=== PATIENT | female | born 1980 | race Caucasian/White ===

== ENCOUNTER 2020-06-22 18:02 | Emergency (ER) | payer MEDICAID ==
[~2020-06-22] VITALS: Ht 162.6 cm; Wt 61.2 kg
[2020-06-22 18:02] VITALS: BP_SYST 125
--- NOTE | 2020-06-22 18:02 | NUR ---
Patient to ER bed 5 to gown for evaluation. Side rails up. Report given to SRAVANTHI Gonzáles.
--- NOTE | 2020-06-22 18:02 | NUR ---
40 y/o female bib [facility] ambulance w/ c/o generalized body pain and h/a for which patient had stated that her "pain is so severe that she wants to " but denies any suicidal or homocidal ideations. Introduced self to patient, positioned for comfort and safety w/ bed to low position sr up. Continue to monitor.
--- NOTE | 2020-06-22 18:38 | NUR ---
ROMEO Boston at bedside examining patient.
[2020-06-22] MEDS ORDERED: OLANZapine 5 MG TAB.RAPDIS PO ONE (18:45)
[2020-06-22] MEDS ORDERED: NACL 0.9% 1,000 ML IV ONE (18:45)
--- NOTE | 2020-06-22 19:06 | NUR ---
received report from SRAVANTHI Gonzáles for continuation of care.
--- NOTE | 2020-06-22 19:11 | NUR ---
patient states she has "the worst headache of her life", pain rated 10 out of 10. patient denies suicidal ideations.
--- NOTE | 2020-06-22 19:15 | NUR ---
patient refusing IV and fluids. aware.
[2020-06-22 19:29] LABS: BASOPHILS # (AUTO) 0.1 K/uL (0.0-0.2); BASOPHILS % (AUTO) 0.7 % (0.0-2.0); EOSINOPHILS # (AUTO) 0.1 K/uL (0.0-0.4); EOSINOPHILS % (AUTO) 0.6 % (0.0-4.0); HEMATOCRIT 40.6 % (36-48); HEMOGLOBIN 14.3 g/dL (12.0-16.0); LYMPHOCYTES # (AUTO) 3.4 K/uL (1.0-5.5); MEAN CORPUSCULAR HEMOGLOBIN 34 pg (27-31); MEAN CORPUSCULAR HGB CONC 35 % (32-36); MEAN CORPUSCULAR VOLUME 95 fL (79.0-98.0); MONOCYTES # (AUTO) 0.6 K/uL (0.0-1.0); NEUTROPHILS # (AUTO) 6.7 K/uL (1.8-7.7); NEUTROPHILS % (AUTO) 61.7 % (40.0-70.0); PLATELET COUNT (AUTO) 251 K/uL (130-430); RED BLOOD CELL COUNT(AUTO) 4.25 MIL/uL (4.2-6.2); RED CELL DISTRIBUTION WIDTH 13.1 % (9.0-15.0); WHITE BLOOD COUNT (AUTO) 10.9 K/uL (4.8-10.8)
--- NOTE | 2020-06-22 19:30 | NUR ---
moved to bed 3
[2020-06-22 19:38] LABS: ANION GAP 12 (5-15); CALCIUM 9.3 mg/dL (8.4-11.0); CHLORIDE 103 mmol/L (98-107); CREATININE 0.48 mg/dL (0.55-1.30); GLUCOSE 85 mg/dL (70-99); POTASSIUM 3.4 mmol/L (3.5-5.1); SODIUM SERUM 136 mmol/L (136-145); UREA NITROGEN, BLOOD 8 mg/dL (8-21)
--- NOTE | 2020-06-22 19:38 | NUR ---
patient refusing all medication and interventions ordered by MD. pt began threatening myself and another nurse stating "if you don't give me the pain medications i want them i will make your life a living hell, i will end you, i will put you under, and by under you know what i mean". pt began speaking in a different accent and continuing to make threats.
--- NOTE | 2020-06-22 19:42 | NUR ---
patient eloped. NO IV access. pt ambulated with steady gait. MD aware. pt denies suidical ideations.
[2020-06-22 19:51] LABS: ALANINE AMINOTRANSFERASE 45 U/L (12-78); ALBUMIN 4.1 g/dL (3.4-4.8); ASPARTATE AMINOTRANSFERASE 26 U/L (10-37); TOTAL BILIRUBIN 0.5 mg/dL (0.0-1.0)
[2020-06-22 19:51] LABS: BARBITURATE, URINE NEGATIVE (NEG <=200)
[2020-06-22 19:52] LABS: BENZODIAZEPINE, URINE NEGATIVE (NEG <=150); CANNABINOID, URINE NEGATIVE (NEG <=50); COCAINE, URINE NEGATIVE (NEG <=150); METHAMPHETAMINES SCREEN,URINE POSITIVE (NEG <=500); OPIATE, URINE NEGATIVE (NEG <=100); PHENCYCLIDINE SCREEN,URINE NEGATIVE (NEG <=25); UR TRICYCLIC ANTIDEPRESSANTS NEGATIVE (NEG <=300); URINE AMPHETAMINE POSITIVE (NEG <=500); URINE METHADONE NEGATIVE (NEG <=200); URINE OXYCODONE SCREEN NEGATIVE (NEG <=100); URINE PROPOXYPHENE SCREEN NEGATIVE (NEG <=300)
[2020-06-22 19:54] LABS: GFR AFRICAN AMERICAN 183 mL/min (>90)
[2020-06-22 19:55] LABS: ACETAMINOPHEN < 1 ug/mL (1-30); ALCOHOL, BLOOD < 3 mg/dL (<10)
== END 2020-06-22 19:42 | disposition left against medical advice (07) ==
LOC: SED 18:02
DX: R51.9 Headache, unspecified (principal); F17.200 Nicotine dependence, unspecified, uncomplicated
CPT/HCPCS: 36415; 80053; 80307; 81025; 85025; 99283; G0480; G0481; G0482

== ENCOUNTER 2020-06-25 21:40 | Emergency (ER) | payer MEDICAID, SELFPAY ==
[~2020-06-25] VITALS: Ht 162.6 cm; Wt 62.6 kg
[2020-06-25 21:45] VITALS: BP_SYST 139
--- NOTE | 2020-06-25 21:51 | NUR ---
Patient to ER bed 5 to gown for evaluation. Side rails up. Report given to Tomasa FISHMAN.
[2020-06-25] MEDS ORDERED: LORazepam 2 MG/ML VIAL IM ONE (22:00)
--- NOTE | 2020-06-25 22:02 | NUR ---
Pt bib ambulance for drug overdose. Pt reports taking unknown amount of trazadone and zyprexa x 30 mins ago. Pt requesting to go to psych facility. Pt able to speak full sentence. Vitals are stable and within normal limits. Poison control will be called to for recommendations. Pt has hx of depression. Denies any allergies.
--- NOTE | 2020-06-25 22:05 | NUR ---
Pt refused to change to gown, allowed security to wand patient and go through pockets. Pt verbally abusive and giving threatening remarks.
[2020-06-25] MEDS ORDERED: LORazepam 2 MG/ML VIAL ONE (22:16)
--- NOTE | 2020-06-25 22:30 | NUR ---
Called Poison Control at [phone] and spoke with Gregoria. Per recommendations: Basic work up including ekg, cmp, cbc, AND UDS. 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 Dr. Thayer notified. Will continue to monitor patient.
[2020-06-25 22:48] LABS: BASOPHILS # (AUTO) 0.1 K/uL (0.0-0.2); BASOPHILS % (AUTO) 1.1 % (0.0-2.0); EOSINOPHILS # (AUTO) 0.1 K/uL (0.0-0.4); HEMATOCRIT 39.8 % (36-48); LYMPHOCYTES # (AUTO) 3.7 K/uL (1.0-5.5); MEAN CORPUSCULAR HEMOGLOBIN 34 pg (27-31); MEAN CORPUSCULAR HGB CONC 35 % (32-36); MEAN CORPUSCULAR VOLUME 95 fL (79.0-98.0); MONOCYTES # (AUTO) 0.5 K/uL (0.0-1.0); MONOCYTES % (AUTO) 5.5 % (1.7-9.3); NEUTROPHILS % (AUTO) 53.4 % (40.0-70.0); PLATELET COUNT (AUTO) 280 K/uL (130-430); RED BLOOD CELL COUNT(AUTO) 4.17 MIL/uL (4.2-6.2); RED CELL DISTRIBUTION WIDTH 12.7 % (9.0-15.0); WHITE BLOOD COUNT (AUTO) 9.4 K/uL (4.8-10.8)
--- NOTE | 2020-06-25 23:00 | NUR ---
Gogo sanchez in ED - 06/25/20 at 2301 by SUDEEP ROMEO Thayer at bedside examining patient.
[2020-06-25 23:08] LABS: ANION GAP 10 (5-15); CALCIUM 8.8 mg/dL (8.4-11.0); CHLORIDE 103 mmol/L (98-107); CREATININE 0.59 mg/dL (0.55-1.30); GLUCOSE 125 mg/dL (70-99); SODIUM SERUM 138 mmol/L (136-145); UREA NITROGEN, BLOOD 7 mg/dL (8-21)
[2020-06-25 23:10] LABS: GFR AFRICAN AMERICAN 144 mL/min (>90)
[2020-06-25 23:21] LABS: TRIGLYCERIDES 272 mg/dL (30-150)
[2020-06-25 23:22] LABS: ALANINE AMINOTRANSFERASE 40 U/L (12-78); ALBUMIN 3.8 g/dL (3.4-4.8); ASPARTATE AMINOTRANSFERASE 19 U/L (10-37); CHOLESTEROL 135 mg/dL (<200); HDL CHOLESTEROL 21 mg/dL (>55); LDL CHOLESTEROL 89 mg/dL (<100); TOTAL BILIRUBIN 0.2 mg/dL (0.0-1.0)
[2020-06-25 23:24] LABS: ACETAMINOPHEN < 1 ug/mL (1-30); ALCOHOL, BLOOD < 3 mg/dL (<10)
[2020-06-26 00:01] LABS: BARBITURATE, URINE NEGATIVE (NEG <=200); BENZODIAZEPINE, URINE NEGATIVE (NEG <=150); CANNABINOID, URINE NEGATIVE (NEG <=50); COCAINE, URINE NEGATIVE (NEG <=150); METHAMPHETAMINES SCREEN,URINE NEGATIVE (NEG <=500); OPIATE, URINE NEGATIVE (NEG <=100); PHENCYCLIDINE SCREEN,URINE NEGATIVE (NEG <=25); UR TRICYCLIC ANTIDEPRESSANTS NEGATIVE (NEG <=300); URINE AMPHETAMINE NEGATIVE (NEG <=500); URINE METHADONE NEGATIVE (NEG <=200); URINE OXYCODONE SCREEN NEGATIVE (NEG <=100); URINE PROPOXYPHENE SCREEN NEGATIVE (NEG <=300)
[2020-06-26 00:05] LABS: CLARITY/URINE SLIGHTLY CLOUDY (CLEAR); COLOR,URINE YELLOW (YELLOW)
[2020-06-26 00:06] LABS: BILIRUBIN,URINE NEGATIVE (NEGATIVE); BLOOD, URINE NEGATIVE (NEGATIVE); GLUCOSE,URINE NEGATIVE (NEGATIVE); KETONES,URINE NEGATIVE (NEGATIVE); LEUKOCYTE ESTERASE ,URINE NEGATIVE (NEGATIVE); NITRITE, URINE NEGATIVE (NEGATIVE); PROTEIN URINE NEGATIVE (NEGATIVE); UROBILINOGEN,URINE 0.2 (0.2-1.0)
--- NOTE | 2020-06-26 00:10 | NUR ---
Pt is resting, no complaints at this time. Pt has symmertric chest rise and fall. Pt did not allow me to take vitals.
[2020-06-26] MEDS ORDERED: POTASSIUM CHLORIDE 20 MEQ TAB.PRT.SR PO ONE (02:45)
--- NOTE | 2020-06-26 03:00 | NUR ---
Pt did not allow vitals to be taken, Pt agitated when aroused from sleep, stating "she will end me". Symmetric chest rise and fall.
--- NOTE | 2020-06-26 06:00 | NUR ---
Pt easily aroused, agitated when woken up from sleep. No complaints at this time.
--- NOTE | 2020-06-26 06:02 | NUR ---
Pt agreed to ANGIE, swab sent to Lab.
--- NOTE | 2020-06-26 07:17 | NUR ---
Report given to Aida FISHMAN for continuaton of care
--- NOTE | 2020-06-26 08:00 | NUR ---
PT SANDRO HER HEAD UP IN BED WHEN DOOR WAS OPENED. ASSESSED FOR PAIN, OR HER NEEDS, PT DID NOT ANSWER. SHE LIED DOWN TO HER SIDE AND SHUT HER EYES. WILL CONTINUE TO MONITOR PT.
--- NOTE | 2020-06-26 09:05 | NUR ---
APPROACHED PT, EXPLAINED THAT THE DOCTOR ORDERED EKG. SHE AGREED BUT WHEN EKG MACHINE IS BEING SET UP, SHE REFUSED AND STATED THAT "THIS IS NOT NECESSARY, I HAVE HAD THIS MANY TIMES IN DIFFERENT CLINICS AND ALL WERE FINE". SHE ONLY ALLOWED HER VITAL SIGNS TO BE TAKEN.
--- NOTE | 2020-06-26 10:08 | NUR ---
PET TEAM HERE TO EVALUATE PT.
--- NOTE | 2020-06-26 11:14 | NUR ---
PHONE CALL RECEIVED FROM BARBARA OF [facility], REPORT GIVEN, PT WILL BE ADMITTED UNDER DR LARIOS.
--- NOTE | 2020-06-26 12:48 | NUR ---
[facility] HERE FOR TRANSPORTING PT TO [place]. PT HAVING HER LUNCH. PT IN GOOD MOOD.
[2020-06-26 14:06] VITALS: BP_SYST 106
== END 2020-06-26 14:06 ==
LOC: SED 21:40
DX: T43.591A Poisoning by other antipsychotics and neuroleptics, accidental (unintentional), initial encounter (principal); R45.851 Suicidal ideations; Z20.828 Contact with and (suspected) exposure to other viral communicable diseases; Y92.89 Other specified places as the place of occurrence of the external cause
CPT/HCPCS: 36415; 80053; 80061; 80307; 81003; 82550; 84443; 85025; 87426; 96372; 99285; G0480; G0481; G0482; J2060

== ENCOUNTER 2020-07-08 05:19 | Emergency (ER) | payer MEDICAID, SELFPAY ==
[~2020-07-08] VITALS: Ht 162.6 cm; Wt 62.6 kg
[2020-07-08 05:19] VITALS: BP_SYST 108
--- NOTE | 2020-07-08 05:29 | NUR ---
Patient to ER bed 5 to gown for evaluation. Side rails up.
--- NOTE | 2020-07-08 05:30 | NUR ---
Patient BIB by BLS/EMT. C/O medical clearance x today. Per reported, patient need refill psy medications. Hx Depression, Anxiety disorder, suicidal (per patient reported) A/O,X4, denies pain, Patient states " I need Ativan now, I felt anxious."
--- NOTE | 2020-07-08 05:37 | NUR ---
ER at bedside examining patient.
[2020-07-08] MEDS ORDERED: LORazepam 1 MG TABLET PO ONE ×2 (06:00→07:45)
[2020-07-08 06:09] LABS: BILIRUBIN,URINE 1+ (NEGATIVE); BLOOD, URINE NEGATIVE (NEGATIVE); CLARITY/URINE CLEAR (CLEAR); COLOR,URINE YELLOW (YELLOW); GLUCOSE,URINE NEGATIVE (NEGATIVE); KETONES,URINE NEGATIVE (NEGATIVE); LEUKOCYTE ESTERASE ,URINE NEGATIVE (NEGATIVE); NITRITE, URINE NEGATIVE (NEGATIVE); PROTEIN URINE NEGATIVE (NEGATIVE); UROBILINOGEN,URINE 0.2 (0.2-1.0)
[2020-07-08] MEDS ORDERED: LORazepam 1 MG TABLET ONE (06:10)
--- NOTE | 2020-07-08 06:12 | NUR ---
Request patient change her clothes , patient states " I do not change period, no discuss, I want to go to psy unit."
[2020-07-08 06:18] LABS: BARBITURATE, URINE NEGATIVE (NEG <=200); BENZODIAZEPINE, URINE NEGATIVE (NEG <=150); CANNABINOID, URINE NEGATIVE (NEG <=50); COCAINE, URINE NEGATIVE (NEG <=150); METHAMPHETAMINES SCREEN,URINE POSITIVE (NEG <=500); OPIATE, URINE NEGATIVE (NEG <=100); PHENCYCLIDINE SCREEN,URINE NEGATIVE (NEG <=25); UR TRICYCLIC ANTIDEPRESSANTS NEGATIVE (NEG <=300); URINE AMPHETAMINE NEGATIVE (NEG <=500); URINE METHADONE NEGATIVE (NEG <=200); URINE OXYCODONE SCREEN NEGATIVE (NEG <=100); URINE PROPOXYPHENE SCREEN NEGATIVE (NEG <=300)
--- NOTE | 2020-07-08 07:35 | NUR ---
ER at bedside examining patient.
[2020-07-08 08:21] LABS: BASOPHILS # (AUTO) 0.1 K/uL (0.0-0.2); BASOPHILS % (AUTO) 0.7 % (0.0-2.0); EOSINOPHILS # (AUTO) 0.1 K/uL (0.0-0.4); EOSINOPHILS % (AUTO) 1.7 % (0.0-4.0); HEMATOCRIT 41.9 % (36-48); HEMOGLOBIN 14.2 g/dL (12.0-16.0); LYMPHOCYTES # (AUTO) 2.6 K/uL (1.0-5.5); LYMPHOCYTES % (AUTO) 31.3 % (20.5-51.5); MEAN CORPUSCULAR HEMOGLOBIN 33 pg (27-31); MEAN CORPUSCULAR HGB CONC 34 % (32-36); MEAN CORPUSCULAR VOLUME 98 fL (79.0-98.0); MONOCYTES # (AUTO) 0.6 K/uL (0.0-1.0); MONOCYTES % (AUTO) 7.3 % (1.7-9.3); NEUTROPHILS # (AUTO) 4.8 K/uL (1.8-7.7); PLATELET COUNT (AUTO) 240 K/uL (130-430); RED BLOOD CELL COUNT(AUTO) 4.27 MIL/uL (4.2-6.2); RED CELL DISTRIBUTION WIDTH 12.9 % (9.0-15.0); WHITE BLOOD COUNT (AUTO) 8.2 K/uL (4.8-10.8)
[2020-07-08 08:32] LABS: ANION GAP 10 (5-15); CALCIUM 9.4 mg/dL (8.4-11.0); CHLORIDE 102 mmol/L (98-107); CREATININE 0.58 mg/dL (0.55-1.30); GLUCOSE 102 mg/dL (70-99); POTASSIUM 3.6 mmol/L (3.5-5.1); SODIUM SERUM 138 mmol/L (136-145); UREA NITROGEN, BLOOD 14 mg/dL (8-21)
[2020-07-08 08:35] LABS: GFR AFRICAN AMERICAN 147 mL/min (>90)
[2020-07-08 08:37] LABS: ALANINE AMINOTRANSFERASE 163 U/L (12-78); ASPARTATE AMINOTRANSFERASE 70 U/L (10-37); TOTAL BILIRUBIN 0.4 mg/dL (0.0-1.0)
[2020-07-08 08:38] LABS: ALCOHOL, BLOOD < 3 mg/dL (<10)
[2020-07-08 08:39] LABS: ACETAMINOPHEN < 1 ug/mL (1-30)
--- NOTE | 2020-07-08 08:48 | NUR ---
PT GIVEN BREAKFAST AND ATIVAN PO. PT IS RESTING WELL. PT STATED SHE DOES NOT WANT TO GO OUT IN THE COLD AND WANTS TO GO TO [facility]IATRIC [facility].
[2020-07-08 08:54] LABS: CHOLESTEROL 252 mg/dL (<200); HDL CHOLESTEROL 30 mg/dL (>55); LDL CHOLESTEROL 182 mg/dL (<100); TRIGLYCERIDES 293 mg/dL (30-150)
--- NOTE | 2020-07-08 09:40 | NUR ---
Dr. Siu stated he will arrive to evaluate pt in about an hour.
--- NOTE | 2020-07-08 10:57 | NUR ---
at bedside exaluating patient.
--- NOTE | 2020-07-08 11:55 | NUR ---
Per Dr. Siu pt in on 5150 hold Faxed facesheet, hold, and clinicals to the following [facility] Facilities: [facility]: [facility]: [facility] [place] [facility] waiting for 5150 placement.
--- NOTE | 2020-07-08 12:21 | NUR ---
Pt resting at this time, VSS, respirations even and unlabored.
[2020-07-08] MEDS ORDERED: CANA1TAB4 PO (13:45)
[2020-07-08] MEDS ORDERED: TRAZ-250 PO (13:45)
[2020-07-08] MEDS ORDERED: LEVO25TA2 PO (13:45)
[2020-07-08] MEDS ORDERED: LIP20 PO (13:45)
[2020-07-08] MEDS ORDERED: ESCI20TA PO (13:45)
[2020-07-08] MEDS ORDERED: BENA40TA8 PO (13:45)
[2020-07-08] MEDS ORDERED: FURO-150 PO (13:45)
[2020-07-08] MEDS ORDERED: VIT1TABL67 PO (13:45)
--- NOTE | 2020-07-08 15:06 | NUR ---
PT CONTINUES TO REST IN HER GURNEY. NO OUTBURST OR SUICIDAL IDEATION NOTED. PT HAS NOT ATTMEPTED TO HARM HERSELF, HOWEVER PT HAS TAKEN STEPS TO TAKE CARE OF HERSELF WELL, ASKING FOR LOTS OF FOOD FOR NOURISHMENT.
--- NOTE | 2020-07-08 16:12 | NUR ---
PT , AFTER FINDING OUT HER MEDICAL "FELL THROUGH" , AND THAT WAS THE REASON FOR NOT GETTING A FAST TRANSFER TO A FACILTIY , STRONGLY WENT THROUGH THE BACK DOOR DESPITE RN ATTEMPTING TO STOP HER. PT REFUSED ANOTHER ATIVAN . AND LUIS CALLED RIGHT AWAY.
--- NOTE | 2020-07-08 16:15 | NUR ---
CALL PLACED TO [facility], SPOKE WITH DEPUTY MILLER AND NOTIFIED OF PTS ELOPEMENT OUT OF THE EMERGENCY ROOM. SECURITY WAS NOTIFIED. DEPUTY MILLER REQUESTED TO SPEAK WITH PHARMACEUTICAL OPERATOR, CALL TRANSFERRED TO BUFFY SILVERMAN.
[2020-07-08] MEDS ORDERED: HALOPERIDOL LACTATE 5 MG/ML VIAL ONE (16:29)
[2020-07-08] MEDS ORDERED: MIDAZOLAM HCL 5 MG/5 ML VIAL ONE (16:30)
--- NOTE | 2020-07-08 16:40 | NUR ---
PT RETURNED WITH [facility], PLACED BACK TO BED#5 WITH 4 PT RESTRAINTS ON. MEDICATED ORDERED. JESSICA RENE AT BEDSIDE.
--- NOTE | 2020-07-08 16:46 | NUR ---
PT BACK, BEE BROUGHT PT BACK. MD PRATT ORDERED 5MG HALDOL AND 4 VERSED. RN OVERRIDE FROM MED [employer]. PT IS GIVEN 2 SMALL SANDWHICHES AND JUICE.
--- NOTE | 2020-07-08 18:25 | NUR ---
PT CONTINUES TO SLEEP. SITTER AT BEDSIDE.
--- NOTE | 2020-07-08 19:30 | NUR ---
received report from SRAVANTHI Joe for continuation of care.
--- NOTE | 2020-07-08 19:47 | NUR ---
security at bedside to wand patient. sitter at bedside. no signs of acute distress.
--- NOTE | 2020-07-08 20:12 | NUR ---
pt given sandwich and juice per request. food tray checked for suicidal precautions.
--- NOTE | 2020-07-08 20:46 | NUR ---
patient refused to let nurse or tech collect a full set of vitals. MD aware. pt stating "staff is being rude, won't let me eat any sandwiches".
--- NOTE | 2020-07-08 21:36 | NUR ---
patient awake and alert, resting comfortably in bed, no signs of acute distress. sitter at bedside.
--- NOTE | 2020-07-08 22:16 | NUR ---
patient sleeping, resting comfortably in bed, no signs of acute distress. will continue to monitor. sitter at bedside.
--- NOTE | 2020-07-08 23:26 | NUR ---
patient sleeping, resting comfortably in bed, no signs of acute distress. will continue to monitor. sitter at bedside.
--- NOTE | 2020-07-09 00:12 | NUR ---
pt refuses to allow anyone take her vital signs. patient resting comfortably in bed, no signs of acute distress, breathing even and unlabored. will continue to monitor.
--- NOTE | 2020-07-09 01:44 | NUR ---
patient sleeping, resting comfortably in bed, no signs of acute distress, breathing even and unlabored. will continue to monitor.
--- NOTE | 2020-07-09 02:16 | NUR ---
patient sleeping, resting comfortably in bed, no signs of acute distress, breathing even and unlabored. will continue to monitor.
--- NOTE | 2020-07-09 03:10 | NUR ---
patient sleeping, resting comfortably in bed, no signs of acute distress, breathing even and unlabored. will continue to monitor.
--- NOTE | 2020-07-09 04:03 | NUR ---
pt given snack as requested. pt awake, alert, no signs of acute distres.
--- NOTE | 2020-07-09 06:04 | NUR ---
patient sleeping, resting comfortably in bed, no signs of acute distress, breathing even and unlabored. will continue to monitor.
--- NOTE | 2020-07-09 06:50 | NUR ---
pt awake, vital signs stable. given warm blanket. breakfast tray ordered.
--- NOTE | 2020-07-09 07:10 | NUR ---
REPORT GIVEN TO SRAVANTHI MARADIAGA FOR CONTINUATION OF CARE.
--- NOTE | 2020-07-09 09:39 | NUR ---
Pt asleep in [facility] at this time
--- NOTE | 2020-07-09 11:13 | NUR ---
PT AGGRESSIVELY APPROACHING THE DESK AND ARGUING WITH DR AND LIEUTENANT SHIFT SUPERVISOR. PT GIVEN SNACKS REQUESTED.
[2020-07-09] MEDS ORDERED: LORazepam 1 MG TABLET PO ONE (11:15)
--- NOTE | 2020-07-09 11:31 | NUR ---
PT GIVEN MEAL TRAY PER REQUEST.
--- NOTE | 2020-07-09 12:07 | NUR ---
DR DEL RIOYARY HERE TO SEE AND RE-EVALUATE PT.
--- NOTE | 2020-07-09 13:00 | NUR ---
Patient given written and verbal discharge instructions and verbalizes understanding. ER MD discussed with patient the results and treatment provided. Patient in stable condition. ID arm band removed. Patient educated on pain management and to follow up with PMD. Pain Scale 0/10. Opportunity for questions provided and answered. Medication side effect fact sheet provided.
--- NOTE | 2020-07-09 13:02 | NUR ---
SPOKE WITH DR PRINGLE AND PT IS STABLE TO BE DISCHARGED AND REMOVE [id number]
[2020-07-09 14:27] VITALS: BP_SYST 108
== END 2020-07-09 14:27 | disposition home or self-care (01) ==
LOC: SED 05:19
DX: F20.9 Schizophrenia, unspecified (principal); F41.9 Anxiety disorder, unspecified; R45.851 Suicidal ideations; F17.200 Nicotine dependence, unspecified, uncomplicated; Z79.899 Other long term (current) drug therapy
CPT/HCPCS: 36415; 80053; 80061; 80307; 81003; 83036; 85025; 87426; 99284; G0480; G0481; G0482; J1630; J2250